=== PATIENT | male | born 2000 | race Caucasian/White ===

== ENCOUNTER 2020-08-02 10:41 | Emergency (ER) | payer BC ==
[~2020-08-02] VITALS: Ht 180 cm; Wt 70.3 kg
[2020-08-02 11:53] LABS: BASOPHILS % (AUTO) 1 % (0-10); EOSINOPHILS % (AUTO) 0 % (0-10); HEMATOCRIT 40 % (40-54); HEMOGLOBIN 13.7 g/dL (13.3-17.7); LYMPHOCYTES # (AUTO) 0.6 10^3/uL (1.0-4.0); LYMPHOCYTES % (AUTO) 11 % (12-44); MEAN CORPUSCULAR HEMOGLOBIN 30 pg (25-34); MEAN CORPUSCULAR HGB CONC 35 g/dL (32-36); MEAN CORPUSCULAR VOLUME 87 fL (80-99); MEAN PLATELET VOLUME 9.2 fL (9.0-12.2); MONOCYTES # (AUTO) 0.9 10^3/uL (0.0-1.0); MONOCYTES % (AUTO) 17 % (0-12); NEUTROPHILS # (AUTO) 3.7 10^3/uL (1.8-7.8); NEUTROPHILS % (AUTO) 70 % (42-75); PLATELET COUNT 262 10^3/uL (130-400); WHITE BLOOD COUNT 5.2 10^3/uL (4.3-11.0)
[2020-08-02 12:04] LABS: ALBUMIN 4.6 GM/DL (3.2-4.5)
[2020-08-02 12:05] LABS: AMYLASE 27 U/L (25-125); CHLORIDE 103 MMOL/L (98-107); SODIUM 138 MMOL/L (135-145)
[2020-08-02 12:06] LABS: CALCIUM 9.3 MG/DL (8.5-10.1)
[2020-08-02 12:07] LABS: GLUCOSE 94 MG/DL (70-105); TOTAL PROTEIN 7.3 GM/DL (6.4-8.2)
[2020-08-02 12:08] LABS: CARBON DIOXIDE 24 MMOL/L (21-32)
[2020-08-02 12:09] LABS: BILIRUBIN,TOTAL 0.5 MG/DL (0.1-1.0)
[2020-08-02 12:10] LABS: ALKALINE PHOSPHATASE 21 U/L (40-136)
[2020-08-02 12:11] LABS: CREATININE SERUM 1.09 MG/DL (0.60-1.30); GFR ESTIMATED > 60
[2020-08-02 12:12] LABS: BUN/CREATININE RATIO 9
--- NOTE | 2020-08-02 12:13 | Diagnostic Imaging Report ---
INDICATION: Cough. TIME OF EXAM: 12:03 p.m. FINDINGS: The heart size is normal. The pulmonary vascularity is unremarkable. The lungs are clear. No infiltrate, effusion or pneumothorax is detected. IMPRESSION: No acute cardiopulmonary process is detected. Dictated by: Dictated on workstation # [id number]
[2020-08-02 12:14] LABS: ALANINE AMINOTRANSFERASE 14 U/L (0-55); LIPASE 21 U/L (8-78)
[2020-08-02 12:34] LABS: ALBUMIN 4.6 GM/DL (3.2-4.5)
[2020-08-02 12:37] LABS: TOTAL PROTEIN 7.3 GM/DL (6.4-8.2)
[2020-08-02 12:39] LABS: BILIRUBIN,TOTAL 0.5 MG/DL (0.1-1.0)
[2020-08-02 12:42] LABS: BILIRUBIN,DIRECT 0.2 MG/DL (0.0-0.3); BILIRUBIN,INDIRECT 0.3 MG/DL
--- NOTE | 2020-08-02 12:46 | ED Respiratory ---
General Chief Complaint: Abdominal/GI Problems Stated Complaint: COUGH Nursing Triage Note: Pt c/o ongoing stomach pain that has worsened today. Pt has been seeing Dr. Chery and takes Protonix. Pt reports feeling as if pt does not digest food properly. Pt c/o chills and feeling hot last night. Source: patient Exam Limitations: no limitations History of Present Illness Date Seen by Provider: Aug 02, 2020 Time Seen by Provider: 12:43 Initial Comments 20-year-old male presents to the emergency room with complaints of a fever and chills that started last night and a dry cough. He reports that he's also been undergoing treatment for GERD/gastritis by Dr. Doty is currently on Protonix. He does report that he's had worsening diarrhea and abdominal cramping today. 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 Timing/Duration: this morning Prior Episodes/Possible Cause: no prior episodes Associated Symptoms: cough, fever/chills Allergies and Home Medications Allergies Coded Allergies: oxycodone (Verified Allergy, Unknown, Rash, 08/02/20) Patient Home Medication List Home Medication List Reviewed: Yes Review of Systems Review of Systems Constitutional: see HPI, chills, fever, malaise Respiratory: see HPI, cough Gastrointestinal: see HPI, abdominal pain Past Owetndf-Uvhrng-Upalcq Hx Past Med/Social Hx: Reviewed Nursing Past Med/Soc Hx Patient Social History Alcohol Use: Occasionally Uses Recreational Drug Use: Yes Drug of Choice: marijuana Type Used: Electronic/Vapor 2nd Hand Smoke Exposure: Yes Recent Foreign Travel: No Contact w/Someone Who Travel: No Recent Infectious Disease Expo: No Recent Hopitalizations: No Physical Abuse: No Sexual Abuse: No Mistreated: No Seasonal Allergies Seasonal Allergies: No Past Medical History Surgeries: Yes (testicular, wisdom teeth) Respiratory: No Cardiac: No Neurological: No Genitourinary: No Gastrointestinal: No Musculoskeletal: No Endocrine: No HEENT: No Cancer: No Psychosocial: No Blood Disorders: No Family Medical History Reviewed Nursing Family Hx Physical Exam Vital Signs - First Documented 08/02/20 11:10 Temp 39.0 Pulse 98 Resp 18 B/P (MAP) 124/86 (99) Pulse Ox 95 O2 Delivery Room Air Capillary Refill : Less Than 3 Seconds Height: '" Weight: lbs. oz. kg; 21.00 BMI Method: General Appearance: WD/WN, no apparent distress Respiratory: chest non-tender, lungs clear, normal breath sounds, no respiratory distress, no accessory muscle use, respiratory distress Cardiovascular: normal peripheral pulses, regular rate, rhythm, no edema, no gallop, no JVD, no murmur Gastrointestinal: normal bowel sounds, non tender, soft, no organomegaly, no pulsatile mass Extremities: normal capillary refill Neurologic/Psychiatric: alert, normal mood/affect, oriented x 3 Skin: normal color, warm/dry Progress/Results/Core Measures Suspected Sepsis Recent Fever Within 48 Hours: Yes Infection Criteria Present: Suspected New Infection New/Unexplained Altered Menta: No Sepsis Screen: Possible Severe Sepsis Risk SIRS Temperature: Pulse: 98 Respiratory Rate: 18 Laboratory Tests 08/02/20 11:30: White Blood Count 5.2 Blood Pressure 124 /86 Mean: 99 Laboratory Tests 08/02/20 11:30: Creatinine 1.09, Platelet Count 262, Total Bilirubin 0.5 Results/Orders Lab Results Laboratory Tests Test 08/02/20 11:30 08/02/20 11:45 Range/Units White Blood Count 5.2 4.3-11.0 10^3/uL Red Blood Count 4.53 4.30-5.52 10^6/uL Hemoglobin 13.7 13.3-17.7 g/dL Hematocrit 40 40-54 % Mean Corpuscular Volume 87 80-99 fL Mean Corpuscular Hemoglobin 30 25-34 pg Mean Corpuscular Hemoglobin Concent 35 32-36 g/dL Red Cell Distribution Width 11.9 10.0-14.5 % Platelet Count 262 130-400 10^3/uL Mean Platelet Volume 9.2 9.0-12.2 fL Immature Granulocyte % (Auto) 0 % Neutrophils (%) (Auto) 70 42-75 % Lymphocytes (%) (Auto) 11 L 12-44 % Monocytes (%) (Auto) 17 H 0-12 % Eosinophils (%) (Auto) 0 0-10 % Basophils (%) (Auto) 1 0-10 % Neutrophils # (Auto) 3.7 1.8-7.8 10^3/uL Lymphocytes # (Auto) 0.6 L 1.0-4.0 10^3/uL Monocytes # (Auto) 0.9 0.0-1.0 10^3/uL Eosinophils # (Auto) 0.0 0.0-0.3 10^3/uL Basophils # (Auto) 0.0 0.0-0.1 10^3/uL Immature Granulocyte # (Auto) 0.0 0.0-0.1 10^3/uL Erythrocyte Sedimentation Rate 6 0-15 MM/HR D-Dimer 0.38 0.00-0.49 UG/ML Sodium Level 138 135-145 MMOL/L Potassium Level 4.0 3.6-5.0 MMOL/L Chloride Level 103 98-107 MMOL/L Carbon Dioxide Level 24 21-32 MMOL/L Anion Gap 11 5-14 MMOL/L Blood Urea Nitrogen 10 7-18 MG/DL Creatinine 1.09 0.60-1.30 MG/DL Estimat Glomerular Filtration Rate > 60 BUN/Creatinine Ratio 9 Glucose Level 94 70-105 MG/DL Calcium Level 9.3 8.5-10.1 MG/DL Corrected Calcium 8.5-10.1 MG/DL Total Bilirubin 0.5 0.1-1.0 MG/DL Direct Bilirubin 0.2 0.0-0.3 MG/DL Indirect Bilirubin 0.3 MG/DL Aspartate Amino Transf (AST/SGOT) 13 5-34 U/L Alanine Aminotransferase (ALT/SGPT) 15 0-55 U/L Alkaline Phosphatase 22 L 40-136 U/L Lactate Dehydrogenase 143 125-220 U/L C-Reactive Protein High Sensitivity 0.41 0.00-0.50 MG/DL Total Protein 7.3 6.4-8.2 GM/DL Albumin 4.6 H 3.2-4.5 GM/DL Amylase Level 27 25-125 U/L Lipase 21 8-78 U/L Procalcitonin 0.02 <0.10 NG/ML My Orders Orders - RAHEEM COVARRUBIAS Comprehensive Metabolic Panel (08/02/20 11:47) Lipase (08/02/20 11:47) Amylase (08/02/20 11:47) Ua Culture If Indicated (08/02/20 11:47) Ed Iv/Invasive Line Start (08/02/20 11:47) Cbc With Automated Diff (08/02/20 11:47) Chest 1 View, Ap/Pa Only (08/02/20 11:47) Fibrin Degradation Products (08/02/20 12:14) Procalcitonin (Pct) (08/02/20 12:14) Hs C Reactive Protein (08/02/20 12:14) Erythrocyte Sedimentation Rate (08/02/20 12:14) LDH (08/02/20 12:14) Liver Panel (08/02/20 12:14) Coronavirus Sars-Cov-2 So 2019 (08/02/20 12:14) Ekg Tracing (08/02/20 12:21) Vital Signs/I&O 08/02/20 11:10 Temp 39.0 Pulse 98 Resp 18 B/P (MAP) 124/86 (99) Pulse Ox 95 O2 Delivery Room Air Capillary Refill : Less Than 3 Seconds Blood Pressure Mean: 99 Departure Impression Primary Impression: COVID-19 virus infection Additional Impression: GERD (gastroesophageal reflux disease) Disposition: 01 HOME, SELF-CARE Condition: Stable/Unchanged Departure-Patient Inst. Decision time for Depature: 13:43 Referrals: MELLY CHERY MD (PCP/Family) Primary Care Physician Patient Instructions: Coronavirus Disease 2019 (COVID-19) Tests, Acid Reflux and GERD in Adults (DC) Add. Discharge Instructions: Take medication as prescribed. Continue your Protonix as prescribed by Dr. Doty. Await your COVID test results and isolate until further instruction. Follow-up with Dr. Doty's office when your are off of isolation. Return back to the emerg ency room for worsening symptoms or concerns as needed. All discharge instructions reviewed with patient and/or family. Voiced understanding. Scripts Sucralfate (Carafate) 1 Gm Tablet 1 GM PO QIDACHS for 30 Days, #120 TAB Prov: RAHEEM COVARRUBIAS 08/02/20 RAHEEM COVARRUBIAS Aug 02, 2020 12:46
[2020-08-02] MEDS ORDERED: SUCR1TAB36 PO (13:45)
[2020-08-02 13:54] VITALS: BP 114/62
== END 2020-08-02 13:54 | disposition home or self-care (01) ==
LOC: EDUNIT# 10:41 → ER 10:42
DX: U07.1 COVID-19 (principal); K21.9 Gastro-esophageal reflux disease without esophagitis; Z77.22 Contact with and (suspected) exposure to environmental tobacco smoke (acute) (chronic); Z88.5 Allergy status to narcotic agent
CPT/HCPCS: 71045; 80053; 82150; 82248; 83615; 83690; 84145; 85025; 85379; 85652; 86141; U0002; 36415; 80076; 87635

== ENCOUNTER → 2020-08-21 | Outpatient (CLI) | payer BC ==
[~2020-08-21] MED LIST: BARIUM for suspension 96% w/w (Vanilla Silq Medium Density) PO ONE; BARIUM for suspension 98% w/w (Vanilla Silq High Density) PO ONE; SUCR1TAB36 PO
--- NOTE | 2020-08-21 10:44 | Diagnostic Imaging Report ---
INDICATION: Epigastric pain and belching. Patient ingested effervescent crystals as well as thin and thick barium and imaging of the esophagus, stomach and proximal small bowel was performed. Total of 50 seconds of fluoroscopic time was utilized. Preliminary radiograph of the abdomen does show moderate stool in the right colon and transverse colon. The esophagus has a smooth contour. No mass or stricture is identified. No hiatal hernia or gastroesophageal reflux was demonstrated. Stomach is normal in configuration. There is prompt emptying of barium into the small bowel. Duodenal bulb was without deformity. No definite mass or ulceration is seen. IMPRESSION: Unremarkable upper GI. Dictated by: Dictated on workstation # [id number]
== END ==
LOC: RAD 09:10
PROVIDERS: ATTEND Family Medicine
DX: R10.13 Epigastric pain (principal); R14.2 Eructation
CPT/HCPCS: 74246

== ENCOUNTER → 2021-01-31 | Outpatient (CLI) | payer BC ==
[~2021-01-31] MED LIST changes: -BARIUM for suspension 96% w/w (Vanilla Silq Medium Density) PO ONE; -BARIUM for suspension 98% w/w (Vanilla Silq High Density) PO ONE; +PRAZ1CAP2 PO; +SERT-412 PO
== END ==
LOC: LABNPT 05:47
PROVIDERS: ATTEND Surgery
DX: Z01.812 Encounter for preprocedural laboratory examination (principal); Z53.8 Procedure and treatment not carried out for other reasons

== ENCOUNTER → 2023-06-16 | Outpatient (CLI) | payer BC ==
[~2023-06-16] MED LIST changes: +IOHEXOL 350 MG/ML 100 ML (OMNIPAQUE 350) VIAL IV ONE; +NS 100 ML (IVPB) BAG IV ONE
--- NOTE | 2023-06-16 10:55 | Diagnostic Imaging Report ---
PROCEDURE: CT abdomen and pelvis with contrast. TECHNIQUE: Multiple contiguous axial images were obtained through the abdomen and pelvis after administration of intravenous contrast. Auto Exposure Controls were utilized during the CT exam to meet ALARA standards for radiation dose reduction. All CT scans use one or more of the following dose optimizing techniques: automated exposure control, MA and/or KvP adjustment based on patient size and exam type or iterative reconstruction. INDICATION: Nausea and right upper quadrant pain. No prior studies are available for comparison. FINDINGS: The lung bases are clear. The liver and gallbladder are unremarkable. No liver mass or biliary ductal dilatation is identified. The pancreas and spleen are unremarkable. No adrenal mass is detected. Kidneys are unremarkable. There is no hydronephrosis. Aorta is nonaneurysmal. Stomach contains some fluid but no definite wall thickening is seen. Bowel loops are nonobstructed. There is moderate stool load throughout the colon. The appendix is unremarkable. No free fluid or fluid collection is identified. No inflammatory changes are seen. The bladder and prostate are unremarkable. IMPRESSION: Moderate stool load in the colon, correlate for constipation. Study is otherwise unremarkable. Dictated by: Dictated on workstation # [id number]
== END ==
LOC: RAD 09:18
PROVIDERS: ATTEND Nurse Practitioner Family
DX: K56.41 Fecal impaction (principal); K29.00 Acute gastritis without bleeding; E86.0 Dehydration; K59.1 Functional diarrhea
CPT/HCPCS: 74177